=== PATIENT | female | born 1960 | race Caucasian/White ===

== ENCOUNTER 2018-06-04 09:34 | Day surgery (SDC) | payer BC ==
--- NOTE | 2018-05-31 18:33 | HP ---
AMENDED REPORT NOW INCLUDES COSIGNER DESIGNATION - ESIGNED BEFORE ADJUSTMENT PREOPERATIVE HISTORY AND PHYSICAL: DATE OF SURGERY/ADMISSION: 06/04/18 DATE OF OFFICE VISIT/ENCOUNTER: 05/29/18 ATTENDING SURGEON: Rosario Barry MD * (DICTATED BY SARA FRANCISCO) PROCEDURE: Right thumb trigger release. CHIEF COMPLAINT: Right thumb triggering. HISTORY OF PRESENT ILLNESS: This is a 57-year-old female who complains of pain and catching in her right thumb with flexion. She has had trouble for about a month. She denies any specific injury. At this point, she is trying to avoid flexing her thumb because it is very painful. She denies any associated numbness or tingling. She has a history of a left thumb trigger release and has done well with that. She is not interested in a cortisone injection for her right thumb; she would like to proceed directly to surgical intervention. PAST MEDICAL HISTORY: 1. Asthma. 2. GERD. PAST SURGICAL HISTORY: 1. Ganglion cyst excision, right wrist. 2. Bilateral shoulder decompressions. 3. Thyroidectomy. 4. Left trigger thumb release. 5. Elbow tendon release on the right. 6. Appendectomy. 7. Bilateral cataract surgery. 8. D and C x2. 9. Removal of a vocal cord polyp. CURRENT MEDICATIONS: 1. Calcium 500 plus D daily. 2. Motrin 200 mg daily. 3. Multivitamin 1 daily. 4. Protonix 40 mg b.i.d. 5. QVAR 40 mcg/ACT 2 puffs twice a day. 6. Synthroid 88 mcg daily. 7. Vitamin C 500 mg daily. 8. Xopenex 1.25 mg/ 3 mL for nebulizer p.r.n. 9. Zyrtec Allergy 10 mg daily. ALLERGIES: 1. DTAP, reaction unknown. 2. MORPHINE causes nausea. 3. PNEUMOVAX causes nausea. 4. SULFA ANTIBIOTICS and ZOFRAN cause hives. FAMILY MEDICAL HISTORY: Cancer, diabetes, heart disease. 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 She is a former smoker, she quit at age 19. She denies recreational drug use. She drinks alcohol on rare occasion. REVIEW OF SYSTEMS: Negative for general, cephalic, cardiovascular, respiratory , GI, , other musculoskeletal, skin, neurologic and endocrine systems. Negative for history of MRSA, hepatitis C, HIV. PHYSICAL EXAMINATION GENERAL: Well-developed, well-nourished 57-year-old female, in no acute distress. VITAL SIGNS: Height 5 feet 3 inches, weight 153 pounds. Pulse rate 72, blood pressure 118/74. HEENT: Normocephalic, atraumatic. Pupils are equal, round, and reactive to light and accommodation. Extraocular movements are intact. Throat is clear. NECK: Supple. No palpable lymph nodes. PULMONARY: Lungs are clear to auscultation bilaterally. No wheezes, rales, or rhonchi. CARDIOVASCULAR: Regular rate and rhythm. S1, S2. No murmurs, rubs, or gallops. No edema. ABDOMEN: Positive bowel sounds. Soft, nontender. NEUROLOGICAL: Alert and oriented x3. Cranial nerves II through XII are intact. Sensation is intact to light touch. MUSCULOSKELETAL: On exam of her right hand and her thumb in particular, she has marked tenderness at the A1 toshia and significant difficulty with IP flexion of the thumb. She also cannot hyperextend her thumb. Skin is intact. Neurovascular function is intact. IMPRESSION: Right trigger thumb. PLAN: The patient is scheduled to undergo a right thumb trigger release with Dr. Barry on 06/04/18. She will return to the office 10 days postop for followup and suture removal. A prescription for Ultracet was e-scribed to the patient's pharmacy for postoperative pain management. SARA FRANCISCO [id number]/[facility] #: [id number] LYLA
[~2018-06-04 09:34] MED LIST: Buffered Lidocaine 0.9% SYRIN* 5 ML/SYR SYRINGE INTRADERM ONE; Famotidine IV* 10 MG/ML 2 ML (20 mg) IV ONE
[2018-06-04] MEDS ORDERED: Famotidine IV* 10 MG/ML 2 ML (20 mg) ONE (10:26)
[2018-06-04] MEDS ORDERED: Midazolam* 1 MG/ML 5 ML VIAL (5 MG) ONE (11:02)
[2018-06-04] MEDS ORDERED: fentaNYL* 50 MCG/ML 2 ML VIAL (100 MCG VIAL) ONE (11:02)
[2018-06-04] MEDS ORDERED: Acetaminophen TAB* 325 MG PO PRN (11:35)
[2018-06-04] MEDS ORDERED: DiMENhydriNATE IV* 50 MG/ML VIAL IV PUSH PRN (11:35)
[2018-06-04] MEDS ORDERED: Lidocaine 1% INJ* 10 MG/ML 30 ML SDV ONE (11:38)
[2018-06-04] MEDS ORDERED: Ketorolac INJ* 30 MG/ML 1 ML VIAL ONE (11:40)
[2018-06-04] MEDS ORDERED: Lidocaine 2% PF * 5 ML VIAL ONE (11:40)
[2018-06-04] MEDS ORDERED: Propofol* 10 MG/ML 20 ML BTL IV PUSH ONE (11:40)
[2018-06-04 12:26] VITALS: BP 126/69
--- NOTE | 2018-06-04 21:33 | OP ---
DATE OF OPERATION: 06/04/18 [facility] DATE OF : 58 SURGEON: Rosario Barry MD ELECTRICAL UNIT REBUILDER: SARA Atkins ANESTHESIA: Local MAC. PRE-OP DIAGNOSIS: Right trigger thumb. POST-OP DIAGNOSIS: Right trigger thumb. OPERATIVE PROCEDURE: Right trigger thumb release. ESTIMATED BLOOD LOSS: Zero. TOURNIQUET TIME: About 10 minutes. INDICATIONS FOR PROCEDURE: Stacy is a 57-year-old woman who has triggering and locking of her right thumb. She presents for right trigger thumb release. DESCRIPTION OF PROCEDURE: The patient was brought to the operating room, was given a sedation anesthetic and a local infiltration of 10 cc of 1% plain lidocaine at the MP flexion crease of her right thumb. The skin of her right hand and forearm was prepped and draped in the usual sterile fashion. The hand and forearm were exsanguinated and the tourniquet elevated to 250 mmHg. A transverse incision was made over the A1 toshia of the right thumb and then we dissected bluntly through the subcutaneous tissue down to the A1 toshia. The digital neurovascular bundles were retracted by the salesperson surgical appliances, Patsy Mcpherson. The A1 toshia was incised longitudinally, completely releasing the flexor tendon which was in good condition. There was no tenosynovitis. The wound was irrigated and skin edges reapproximated with 4-0 nylon suture. The wound was dressed with Xeroform, 4 x 4, Webril, and an Octaviano wrap. The patient tolerated the procedure well and was brought to the recovery room in good condition. [id number]/[facility] #: [id number] MTDD
== END 2018-06-04 12:40 | disposition home or self-care (01) ==
LOC: OREAST 09:34
PROVIDERS: ATTEND Orthopaedic Surgery
DX: M65.311 Trigger thumb, right thumb (principal); J45.909 Unspecified asthma, uncomplicated; K21.9 Gastro-esophageal reflux disease without esophagitis; Z87.891 Personal history of nicotine dependence; E03.9 Hypothyroidism, unspecified; F41.9 Anxiety disorder, unspecified
CPT/HCPCS: J1885; J2250; J2704; J3010

== ENCOUNTER 2018-07-18 07:52 | Emergency (ER) | payer BC ==
--- OUTSIDE RECORDS SUMMARY | 2018-07-18 07:56 | XMS REPORT | Continuity of Care Document ---
:1960 Author Organization [facility] Office Address [address] [place] [address] Phone Care Team Providers Name Role Phone Shadi Hernandez MD Unavailable Dr. Shadi Gomez MD Unavailable Unavailable Unavailable Problems ALLERGIC RHINITIS (J30.9) (477.9) MD Shadi Gomez Dr. DYSPNEA (R06.00) (786.09) ROSA Pickens GERD (GASTROESOPHAGEAL REFLUX DISEASE) (K21.9) (530.81) MD Shadi Gomez Dr. HYPERLIPIDEMIA (E78.5) (272.4) MD Shadi Gomez Dr. HYPOTHYROID (E03.9) (244.9) MD Shadi Gomez Dr. MILD PERSISTENT ASTHMA (J45.30) (493.90) ROSA Pickens Allergies and Adverse Reactions Morphine Derivatives (Allergy) Sulfa Drugs (Allergy) Vaccines - Albumin (Allergy) Comments: Pneumonia vaccine cellulitis Vaccines - Albumin (Allergy) Comments: Tdap cellulitis Zofran *ANTIEMETICS* (Allergy) Medications Calcium-Vitamin D 500 MG Oral Capsule; (500 MG) DUONEB, 0.5-2.5 (3)MG/3ML Comments: Medication taken (Inhalation Solution); 1 four as needed. times daily, as needed (0.5-2.5 (3) MG/3ML) EpiPen 2-Elmer 0.3 MG/0.3ML Injection Solution Auto-injector; 1 Soln Auto-inj as needed for 30 days Ordered: 03-Jul-2018 Start: 03-Jul-2018 Quantity: [address] Comments: Medication taken as needed. Refills: 1 Multi Vitamin Daily Oral Tablet; 1 daily PROTONIX, 40MG (Oral Packet); 1 two times daily (40 MG) Qvar 40 MCG/ACT Inhalation Aerosol Solution; 2 (two) Puff(s) two times daily for 30 days Ordered: 03-Jul-2018 Start: 03-Jul-2018 Quantity: [address] Comments: Patient has a coupon Refills: 5 SYNTHROID, 88MCG (Oral Tablet); 1 daily (88 MCG) Xopenex HFA 45 MCG/ACT Inhalation Aerosol; 1-2 Aerosol every four hours, as needed for 30 days Ordered: 03-Jul-2018 Start: 03-Jul-2018 Quantity: [address] Comments: Medication taken as needed. patient has coupon Refills: 3 XOPENEX, 1.25MG/3ML (Inhalation Nebulization Solution); 1 three times daily (1.25 MG/3ML) ZYRTEC ALLERGY, 10MG (Oral Capsule); 1 daily (10 MG) ALPRAZOLAM, 0.25MG (Oral Tablet); Status: Inactive 1 three times daily, as needed Comments: Medication taken as needed. (0.25 MG) AMBIEN, 10MG (Oral Tablet); 1 Status: Inactive daily (10 MG) SYNTHROID, 112MCG (Oral Tablet); Status: Inactive 1 daily (112 MCG) ZOCOR, 20MG (Oral Tablet); 1 Status: Inactive daily (20 MG) ZOLOFT, 100MG (Oral Tablet); 1 Status: Inactive daily (100 MG) Procedures RESPIRATORY FLOW VOLUME LOOP MD Shadi Gomez Dr. Status: Completed May-2017 (21675) REST OXIMETRY (21468) Fadumo Narayanan Status: Completed 05-Jun-2017 PRE AND POST (69110) MD Shadi Gomez Dr. Status: Completed 24-Apr-2016 RESPIRATORY FLOW VOLUME LOOP MD Shadi Gomez Dr. Status: Completed Apr-2016 (39624) REST OXIMETRY (73206) MD Shadi Gomez Dr. Status: Completed 2015 RESPIRATORY FLOW VOLUME LOOP MD Shadi Gomez Dr. Status: Completed Apr-2015 (57305) PRE AND POST W/ RT (15583) MD Shadi Gomez Dr. Status: Completed Apr-2015 RESPIRATORY FLOW VOLUME LOOP MD Shadi Gomez Dr. Status: Completed Nov-2014 (15954) PRE AND POST (25567) MD Shadi Gomez Dr. Status: Completed 02-Dec-2014 ABNORMAL UTERINE BLEEDING MD Shadi Gomez Dr. Status: Completed Comments: ablation, then DNC APPENDECTOMY MD Shadi Gomez Dr. Status: Completed Comments: AGE 15 Cataract Extraction-Left MD Shadi Gomez Dr. Status: Completed 2014 CATARACT, RIGHT MD Shadi Gomez Dr. Status: Completed 1994 Chest X-ray MD Shadi Gomez Dr. Status: Completed 02-Dec-2014 Comments: No evidence of acute pulmonary disease D & C MD Shadi Gomez Dr. Status: Completed 11-Sep-2015 Flu Vaccine MD Shadi Gomez Dr. Status: Completed 08-Aug-2016 Ganglion cyst MD Shadi Gomez Dr. Status: Completed H/O THYROIDECTOMY MD Shadi Gomez Dr. Status: Completed 1994 ORTHOPEDIC AFTERCARE MD Shadi Gomez Dr. Status: Completed Comments: Trigger finger left thumb, tendon release right elbow, decompression bilateral shoulders. PFT MD Shadi Gomez Dr. Status: Completed 02-Dec-2014 Comments: FEV1 2.36 (94), ratio 79, stable PFT MD Shadi Gomez Dr. Status: Completed 05-Jun-2017 Comments: No Obstruction. FEV1 1.25 (88), ratio 80 POLYP OF VOCAL CORD MD Shdai Gomez Dr. Status: Completed 1990 Comments: REMOVED NON CANCEROUS Procedure: PRE AND POST (39640)Result: Date: 05-Jun-2017 10:02 Hemoptysis: No Status: Completed 05-Jun-2017 9:[address] Procedure: ACT: ASSESSMENT OF DISEASE: ASTHMA Date: 26-Apr-2015 14:23 SYMPTOMS EVALUATE (1005F)Result: Status: Completed 26-Apr-2015 14:24 [Questions] In the past 4 weeks, how much of the MD Shadi Gomez Dr. time did your asthma keep you from getting as much done at work, school, or home?: 5; During the past 4 weeks, how often have you had shortness of breath?: 4; During the past 4 weeks, how often did your asthma symptoms (wheezing, coughing, shortness of breath, chest tightness, or pain) wake you up at night or earlier than usual in the morning?: 5; During the past 4 weeks, how often have you used your rescue inhaler or nebulizer medication (such as albuterol)?: 5; How would you rate your asthma control during the past 4 weeks?: 5 [Total ACT Score] Score: 24 Procedure: CHEST X-RAY, PA AND LATERAL Status: Completed 02-Dec-2014 9:43 ([id number])Result: MD Shadi Gomez Dr. Are you or could you become ?: No; When was you last CXR/CT?: 2014; Law Writer: MERVIN Stotu Immunizations Influenza (3 years and up) On: 07-Sep-2015 Family History Brother 1 Status: Active Comments: heart disease, angina d/t CO age 60 Brother 1 Status: Active Comments: . Lung Cancer. COPD. age 70 Brother 2 Status: Active Comments: Lung Cancer. COPD. Father Status: Active Comments: . COPD. age 70 Mother Status: Active Comments: heart disease, diabetes Mother Status: Active Comments: . Heart disease. Diabetes mellitus, Type II. age 70 Sister 1 Status: Active Comments: COPD. Social History Alcohol use: Occasional alcohol use. Current work status: Full-time. Marital status: . 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 Comments: 6 Tobacco use: Former smoker. Comments: started age 15 quit age 18 Former smoker Female Plan of Treatment EXHALED GAS NITRIC OXIDE MEASUREMENT (MOLES/VOLUME) (96101) Start: 2018 Intent PRE AND POST (99657) Start: 31-May-2018 Intent RESPIRATORY FLOW VOLUME LOOP (60093) Start: 31-May-2018 Intent REST OXIMETRY (43580) Start: 31-May-2018 Intent Medical; PRE AND POST RT - FENO Start: 17-Jun-2019 15:30 Appointment Request [facility] Resp Therapy [facility], RT Medical; FOLLOW UP 30 - 1YR FU ,PPRT,FENO Start: 17-Jun-2019 15:45 Appointment Request [facility] Stephanie Toro IMMUNOGLOBULIN E (IgE) ([id number]) Start: 02-Dec-2014 11:01 Request MILD PERSISTENT ASTHMA : Asthma patient education Indication: MILD PERSISTENT ASTHMA ALLERGIC RHINITIS : Avoid triggers Indication: ALLERGIC RHINITIS MILD PERSISTENT ASTHMA : Asthma FU yearly Indication: MILD PERSISTENT ASTHMA ALLERGIC RHINITIS : Avoid triggers Indication: ALLERGIC RHINITIS MILD PERSISTENT ASTHMA : Asthma patient education Indication: MILD PERSISTENT ASTHMA Results No Result Information Available Vital Signs 03-Jul-2018 15:52 Temperature 97.8 f Comments: Method: Tympanic Pulse 70 /min Comments: Pattern: Regular Respiration Rate 14 /min Comments: Pattern: Unlabored O2 SAT 97 % Comments: Room air BP Systolic 108 mm[Hg] Comments: Patient Position: Sitting; Cuff Location: Left Arm; Cuff Size: Standard BP Diastolic 70 mm[Hg] Comments: Patient Position: Sitting; Cuff Location: Left Arm; Cuff Size: Standard Weight 151 lb Height 63 in BMI 26.75 kg/m2 BSA 1.72 m2 05-Jun-2017 9:39 Temperature 98.1 f Comments: Method: Oral Pulse 67 /min Comments: Pattern: Regular Respiration Rate 12 /min Comments: Pattern: Unlabored O2 SAT 98 % Comments: Room air BP Systolic 120 mm[Hg] Comments: Patient Position: Sitting; Cuff Location: Left Arm; Cuff Size: Standard BP Diastolic 80 mm[Hg] Comments: Patient Position: Sitting; Cuff Location: Left Arm; Cuff Size: Standard Weight 151 lb Height 63 in BMI 26.75 kg/m2 BSA 1.72 m2 24-Apr-2016 9:10 Temperature 97.9 f Comments: Method: Tympanic Pulse 68 /min Comments: Pattern: Regular Respiration Rate 14 /min Comments: Pattern: Unlabored O2 SAT 97 % Comments: Room air BP Systolic 118 mm[Hg] Comments: Patient Position: Sitting; Cuff Location: Left Arm; Cuff Size: Large BP Diastolic 70 mm[Hg] Comments: Patient Position: Sitting; Cuff Location: Left Arm; Cuff Size: Large Weight 153 lb Height 63 in BMI 27.1 kg/m2 BSA 1.73 m2 26-Apr-2015 14:18 Temperature 97 f Comments: Method: Tympanic Pulse 76 /min Comments: Pattern: Regular Respiration Rate 16 /min Comments: Pattern: Unlabored O2 SAT 98 % Comments: Room air BP Systolic 110 mm[Hg] Comments: Patient Position: Sitting; Cuff Location: Left Arm; Cuff Size: Large BP Diastolic 72 mm[Hg] Comments: Patient Position: Sitting; Cuff Location: Left Arm; Cuff Size: Large Weight 148 lb Height 63 in BMI 26.22 kg/m2 BSA 1.7 m2 02-Dec-2014 10:04 Temperature 97.6 f Comments: Method: Tympanic Pulse 66 /min Comments: Pattern: Regular Respiration Rate 16 /min Comments: Pattern: Unlabored O2 SAT 98 % Comments: Room air BP Systolic 110 mm[Hg] Comments: Patient Position: Sitting; Cuff Location: Left Arm; Cuff Size: Standard BP Diastolic 70 mm[Hg] Comments: Patient Position: Sitting; Cuff Location: Left Arm; Cuff Size: Standard Weight 153 lb Height 63 in BMI 27.1 kg/m2 BSA 1.73 m2 Advance Directives HIPAA - Effective on 06/05/2017. Expiration date unspecified. Effective: Scanned Document is available upon request. Encounters Office Visit 03-Jul-2018 15:52 To 03-Jul-2018 16:08 Encounter Reason: ASTHMA, FOLLOW UP - The patient's long-term asthma pattern may be classified as mild persistent. The last clinic visit was 12 month(s) ago. No changes in management were made at the last visit. The [facility] ent's asthma causes daytime symptoms 1 to 2 times per month. The patient's asthma never disturbs sleep. Symptoms do not include wheezing, chest tightness, shortness of breath, non-productive cough or ch est pain. The patient describes this as mild and unchanged. Symptoms are exacerbated by cold temperature, while symptoms are not exacerbated by activity. Symptoms are relieved by inhaler use, rest and o ral steroids. Associated symptoms include allergy symptoms, while associated symptoms do not include fever, chills or upper respiratory infection symptoms. Current treatment includes inhaled albuterol, inhaled short-acting beta-2 agonists and inhaled corticosteroids (Qvar). Bronchodilator use is becoming less frequent. By report there is good compliance with treatment, good tolerance of treatment and good symptom control. Pertinent medical history includes hospitalization for asthma, allergic rhinitis and gastroesophageal reflux, while pertinent medical history does not include intubation. The mikayla nt has been exposed to animal dander, while the patient has not been exposed to wood burning stove or tobacco smoke. The patient is currently able to do activities of daily living without limitations, a ble to work with limitations and able to do housework without limitations. Encounter Diagnosis: MILD PERSISTENT ASTHMA, ALLERGIC RHINITIS Historical Summary 11-Jun-2018 9:28 To 11-Jun-2018 9:31 [facility] Office Office Visit 05-Jun-2017 9:17 To 05-Jun-2017 10:03 Encounter Reason: ASTHMA, FOLLOW UP - The patient's long-term asthma pattern may be classified as mild persistent. The last clinic visit was 12 month(s) ago. No changes in management were made at the last visit. The [facility] ent's asthma causes daytime symptoms 1 to 2 times per month. The patient's asthma never disturbs sleep. Symptoms do not include wheezing, chest tightness, shortness of breath, non-productive cough or ch est pain. The patient describes this as mild and unchanged. Symptoms are exacerbated by cold temperature, while symptoms are not exacerbated by activity. Symptoms are relieved by inhaler use, rest and o ral steroids. Associated symptoms include allergy symptoms, while associated symptoms do not include fever, chills or upper respiratory infection symptoms. Current treatment includes inhaled albuterol, inhaled short-acting beta-2 agonists and inhaled corticosteroids (Qvar). Bronchodilator use is becoming less frequent. By report there is good compliance with treatment, good tolerance of treatment and good symptom control. Pertinent medical history includes hospitalization for asthma, allergic rhinitis and gastroesophageal reflux, while pertinent medical history does not include intubation. The mikayla nt has been exposed to animal dander, while the patient has not been exposed to wood burning stove or tobacco smoke. The patient is currently able to do activities of daily living without limitations, a ble to work with limitations and able to do housework without limitations. Encounter Diagnosis: ASTHMA, ALLERGIC RHINITIS Office Visit 24-Apr-2016 9:01 To 24-Apr-2016 9:42 Encounter Reason: ASTHMA, FOLLOW UP - The patient's long-term asthma pattern may be classified as mild persistent. The last clinic visit was 12 month(s) ago. No changes in management were made at the last visit. The [facility] ent's asthma causes daytime symptoms 1 to 2 times per month. The patient's asthma never disturbs sleep. Symptoms do not include wheezing, chest tightness, shortness of breath, non-productive cough or ch est pain. The patient describes this as unchanged. Symptoms are exacerbated by cold temperature, while symptoms are not exacerbated by activity. Symptoms are relieved by inhaler use, rest and oral stero ids. Associated symptoms include upper respiratory infection symptoms, while associated symptoms do not include fever, chills or allergy symptoms. Current treatment includes inhaled albuterol and inhale d short-acting beta-2 agonists. Bronchodilator use is becoming less frequent. By report there is good compliance with treatment, good tolerance of treatment and good symptom control. Pertinent medical h istory includes allergic rhinitis and gastroesophageal reflux, while pertinent medical history does not include hospitalization for asthma. The patient has been exposed to animal dander, while the patie nt has not been exposed to wood burning stove or tobacco smoke. The patient is currently able to do activities of daily living without limitations, able to work with limitations and able to do housework without limitations. Encounter Diagnosis: ASTHMA, ALLERGIC RHINITIS Office Visit 26-Apr-2015 14:17 To 26-Apr-2015 15:58 Encounter Reason: ASTHMA, FOLLOW UP - The patient's long-term asthma pattern may be classified as mild persistent. The last clinic visit was 60 month(s) ago (2009). No changes in management were made at the last visit. [facility] Office he patient's asthma causes daytime symptoms 1 to 2 times per month. The patient 's asthma never disturbs sleep. Symptoms include wheezing, chest tightness, shortness of breath, non-productive cough and c hest pain. The patient describes the difficulty breathing as difficulty exhaling, chest tightness and dyspnea on exertion. Onset of symptoms was sudden 2 month(s) ago (was seen in ER with CP and was jolene ated with steroids. Reports a negative cardiac work up and a normal CXR). There is no known event that preceded symptom onset. The symptoms occur intermittently. The patient describes this as improving (has had 2 rounds of prednsione and a round on antibiotics). Symptoms are exacerbated by cold temperature, while symptoms are not exacerbated by activity. Symptoms are relieved by inhaler use, rest and oral steroids. Associated symptoms include upper respiratory infection symptoms , while associated symptoms do not include fever, chills or allergy symptoms. Current treatment includes inhaled albuterol and inhaled short-acting beta-2 agonists. Bronchodilator use is becoming less frequent. By report there is good compliance with treatment, good tolerance of treatment and fair symptom control. Note for "Follow-up for asthma": April 26, 2015Pt states that she is feeling well. She has no concerns today. The last time she needed oral steroids was in January for an episode of bronchitis. She has been using the QVAR daily. She states that her symptoms vary. Within the past month she has only used her Xopenex once. She states that most of her breathing issues are associated with an common cold. She states that her URI's quickly turn into bronchitis or pneumonia. She denies any SOB with activities of daily living, nocturnal awakenings, wheezing or cough. Her ACT score was 24. Encounter Diagnosis: ASTHMA Office Visit 02-Dec-2014 9:41 To 02-Dec-2014 11:12 Encounter Reason: ASTHMA, FOLLOW UP - The patient's long-term asthma pattern may be classified as mild persistent. No changes in management were made at the last visit.The last clinic visit was 60 month(s) ago (2009). [facility] She was seen in ER with CP and was treated with steroids. Reports a negative cardiac work up and a normal CXR. Onset of symptoms was sudden 2 month(s) ago. Symptoms included wheezing, chest tightness, shortness of breath, non-productive cough and chest pain. The patient describes the difficulty breathing as difficulty exhaling, chest tightness and dyspnea on exertion. The patient's asthma causes day time symptoms 1 to 2 times per month. The patient's asthma never disturbs sleep. There is no known event that preceded symptom onset. The symptoms occur intermittently. The patient describes this as imp roving (has had 2 rounds of prednsione and a round on antibiotics). Symptoms are exacerbated by cold temperature, while symptoms are not exacerbated by activity. Symptoms are relieved by inhaler use, re st and oral steroids. Associated symptoms include upper respiratory infection symptoms, while associated symptoms do not include fever, chills or allergy symptoms. Current treatment includes inhaled alb uterol and inhaled short-acting beta-2 agonists. Bronchodilator use is becoming less frequent. By report there is good compliance with treatment, good tolerance of treatment and fair symptom control. Encounter Diagnosis: ASTHMA, ALLERGIC RHINITIS Historical Summary 01-Dec-2014 15:56 To 24-Feb-2015 16:08 [facility] Office [employer] [address] Group Number: [id number] tel: CURRENT OPEN 3 TI[employer] Group Number: [id number] [id number] tel:
--- OUTSIDE RECORDS SUMMARY | 2018-07-18 07:56 | XMS REPORT ---
:1960 External Reference #:[id number] Author Organization [employer] Address [address] [place] [address] [place] [address] Phone [phone] Care Team Providers Name Role Phone Shadi Hernandez MD Primary Care Physician Unavailable Payers Type Date Identification Numbers Payment Provider Subscriber Commercial Effective: Policy Number: BS Facets Stacy Bello 2011 [id number] PayID: [id number] [address] [address] [place] [address] Problems Date Description Provider Status Onset: 01/07/2016 Wrist joint pain Jericho Solis MD Active Onset: 08/13/2017 Sprain of shoulder and upper arm Amy Lopez M.D. Active Onset: 08/13/2017 Injury of shoulder region Amy Lopez M.D. Active Onset: 08/13/2017 Calcific tendinitis of shoulder Amy Lopez M.D. 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 No Do you have problems with snoring? Yes Do you have problems with day time fatigue? NO Allergies, Adverse Reactions, Alerts Date Description Reaction Status Severity Comments 12/15/2014 Sulfa Antibiotics active 12/15/2014 Morphine active 12/15/2014 Zofran active 12/15/2014 Pneumovax active 02/01/2017 D-Tap Cellulitis active Moderate Medications Medication Date Status Form Strength Qnty SIG Indications Ordering Provider Protonix 00/ Active Tablets DR 40mg 1 by mouth Unknown 0000 twice every day Zyrtec / Active Tablets 10mg 1 by mouth Unknown Allergy 0000 every day Vitamin C / Active Capsules 500mg 1 by mouth Unknown 0000 every day Calcium 500 / Active Tablets 500-125mg- One tab by Unknown + D 0000 Unit mouth daily Multi For / Active Tablets 1 by mouth Unknown Her 0000 every day Motrin Ib / Active Tablets 200mg as needed Unknown 0000 Synthroid / Active Tablets 88mcg 1 by mouth Unknown 0000 every day Xopenex / Active Nebulizer 1.25mg/3ML instill 3ml Unknown 0000 to nebulizer every 8 hours as needed Qvar / Active Aerosol 40mcg/Act 2 puff Unknown 0000 twice a day Epipen 2-Elmer / Active Solution 0.3mg/0.3M use as Unknown 0000 Auto-Inject L directed, as needed Tylenol 8 / Active Unknown Hour 0000 Tramadol 05/29/ Hx Tablets 37.5-325mg 15tabs 1 tab by Rosario Farrell 2017 - mouth every Barry, e/Acetaminop 06/18/ 4-6 hours M.D. hen 2018 as needed pain Naproxen 08/13/ Hx Tablets 500mg 30tabs 1 tablet M75.31 Amy 2016 - with food John, 12/11/ by mouth M.D. 2017 twice a day Naproxen 10/03/ Hx Tablets 500mg 90tabs 1 po bid M75.42 Lowell Tariq 2015 - prn pain Chrissy, 08/13/ (pt has not MD 2017 been taking) Carolina 01/05/ Hx Tablets 5-325mg 30tabs 1-2 tab by Rome 2014 - mouth every Young, 04/11/ bid as M.D. 2015 needed pain Valium 12/22/ Hx Tablets 5mg 3tabs 1 by mouth Shadi 2014 - 2 hours Lawrence, 11/08/ prior to M.D. 2017 mri may take one more every 1 hour as needed anxiety Synthroid / Hx Tablets 100mcg 1 by mouth Unknown 0000 - every day 2016 Xopenex HFA / Hx Aerosol 45mcg/Act 2 puffs Unknown 0000 - four times 01/30/ a day as 2017 needed Aspirin Ec / Hx Tablets DR 81mg 1 by mouth Unknown 0000 - every day 2017 Medications Administered in Office Medication Date Status Form Strength Qnty SIG Indications Ordering Provider Depomedrol Administered Injection Juan 40MG 018 GRADY Byrne Depomedrol Administered Injection Rome 80MG 015 Vishal Granda Vital Signs Date Vital Result Comment 06/27/2018 Height 63 inches 5'3" Weight 150.00 lb Heart Rate 72 /min BP Systolic Sitting 134 mmHg BP Diastolic Sitting 76 mmHg Respiratory Rate 16 /min Pain Level 0 BMI (Body Mass Index) 26.6 kg/m2 06/19/2018 Height 64 inches 5'4" Weight 150.00 lb Heart Rate 68 /min BP Systolic 120 mmHg BP Diastolic 72 mmHg Respiratory Rate 12 /min Pain Level 0 BMI (Body Mass Index) 25.7 kg/m2 06/06/2018 Height 64 inches 5'4" Weight 150.00 lb Heart Rate 64 /min Respiratory Rate 20 /min Body Temperature 98.2 F Pain Level 5 BMI (Body Mass Index) 25.7 kg/m2 05/29/2018 Height 63 inches 5'3" Weight 153.25 lb Heart Rate 72 /min BP Systolic 118 mmHg BP Diastolic 74 mmHg Respiratory Rate 12 /min Pain Level 4 BMI (Body Mass Index) 27.1 kg/m2 12/12/2017 Height 64 inches 5'4" Weight 150.00 lb Heart Rate 76 /min BP Systolic Sitting 122 mmHg BP Diastolic Sitting 68 mmHg Respiratory Rate 16 /min Pain Level 0 uses inserts and ice BMI (Body Mass Index) 25.7 kg/m2 08/27/2017 Height 64 inches 5'4" Weight 150.00 lb Heart Rate 80 /min BP Systolic 108 mmHg BP Diastolic 64 mmHg BMI (Body Mass Index) 25.7 kg/m2 08/13/2017 Height 63 inches 5'3" Weight 150.00 lb Heart Rate 61 /min BP Systolic 105 mmHg BP Diastolic 74 mmHg Body Temperature 97.2 F BMI (Body Mass Index) 26.6 kg/m2 02/22/2017 Height 63 inches 5'3" Weight 151.00 lb Heart Rate 80 /min BP Systolic 120 mmHg BP Diastolic 80 mmHg Respiratory Rate 16 /min Pain Level 2 BMI (Body Mass Index) 26.7 kg/m2 02/01/2017 Height 63 inches 5'3" Weight 152.00 lb with shoes Heart Rate 76 /min BP Systolic 122 mmHg Rue reg cuff BP Diastolic 72 mmHg Rue reg cuff BP Systolic Sitting 120 mmHg Lue reg cuff BP Diastolic Sitting 76 mmHg Lue reg cuff BP Systolic Standing 126 mmHg Lue reg cuff BP Diastolic Standing 82 mmHg Lue reg cuff Respiratory Rate 15 /min BMI (Body Mass Index) 26.9 kg/m2 11/14/2016 Height 63 inches 5'3" Weight 151.00 lb Heart Rate 81 /min BP Systolic 121 mmHg BP Diastolic 81 mmHg Respiratory Rate 14 /min BMI (Body Mass Index) 26.7 kg/m2 10/03/2016 Height 62 inches 5'2" Weight 145.00 lb Respiratory Rate 18 /min Pain Level 7 BMI (Body Mass Index) 26.5 kg/m2 04/12/2016 Height 63 inches 5'3" Weight 145.00 lb Pain Level 2 BMI (Body Mass Index) 25.7 kg/m2 03/02/2016 Height 63 inches 5'3" Weight 145.00 lb Body Temperature 96.1 F Pain Level 3 BMI (Body Mass Index) 25.7 kg/m2 02/10/2016 Height 63 inches 5'3" Weight 145.00 lb BMI (Body Mass Index) 25.7 kg/m2 01/26/2016 Height 63 inches 5'3" Weight 145.00 lb Heart Rate 75 /min BP Systolic 113 mmHg BP Diastolic 73 mmHg BMI (Body Mass Index) 25.7 kg/m2 01/07/2016 Height 63 inches 5'3" Weight 147.00 lb Heart Rate 68 /min BP Systolic 122 mmHg BP Diastolic 82 mmHg BMI (Body Mass Index) 26.0 kg/m2 01/05/2016 Height 63 inches 5'3" Weight 148.00 lb Heart Rate 60 /min BP Systolic Sitting 118 mmHg BP Diastolic Sitting 66 mmHg Respiratory Rate 16 /min Pain Level 5 BMI (Body Mass Index) 26.2 kg/m2 07/07/2015 Height 63 inches 5'3" Weight 150.00 lb Pain Level 3 BMI (Body Mass Index) 26.6 kg/m2 06/11/2015 Height 63 inches 5'3" Weight 150.00 lb Heart Rate 69 /min BP Systolic Sitting 118 mmHg BP Diastolic Sitting 87 mmHg Pain Level 6 BMI (Body Mass Index) 26.6 kg/m2 01/14/2015 Height 63 inches 5'3" Weight 150.00 lb Body Temperature 97.6 F Pain Level 6 BMI (Body Mass Index) 26.6 kg/m2 01/05/2015 Height 63 inches 5'3" Weight 150.00 lb Pain Level 8 BMI (Body Mass Index) 26.6 kg/m2 12/15/2014 Height 63 inches 5'3" Weight 150.00 lb Heart Rate 72 /min BP Systolic 112 mmHg BP Diastolic 84 mmHg Pain Level 8 BMI (Body Mass Index) 26.6 kg/m2 Results Test Date Test Result H/L Range Note Laboratory test 02/22/2016 Surgical Pathology SEE RESULT BELOW 1, 2 finding 1 [id number] 2 SEE RESULT BELOW Name: STACY BELLO : [address]: Rosario Barry MD Acct: [id number] Unit: [id number] AGE: 55 Location: [facility] Re02/22/16 SEX: F Status: REG [facility] SPEC: [id number] ELZA: 02/22/16-0956 [facility] DR: Rosario Barry MD REQ: [id number] RECD: 02/22/16-1257 STATUS: SOUT _ ORDERED: LEVEL III COMMENTS: [id number] FINAL DIAGNOSIS Wrist, right, excision: -- Benign cartilage and synovial tissue fragments, compatible with ganglion cyst. PRE-OPERATIVE DIAGNOSIS Ganglion right wrist. GROSS DESCRIPTION The specimen is received in formalin labeled, Ganglion Right Wrist, and consists of a 1.4 x 1.3 x 0.4 cm aggregate of crump-white irregular rubbery soft tissue fragments admixed with scant possible bone. Entirely submitted, one cassette. Signed (signature on file) Gabby Barbour MD 1241 END OF REPORT * ML=Testing performed at Main Lab DEPARTMENT OF PATHOLOGY, [address] [place] [address] Abdulaziz Gibbs M.D. Director [facility] # [id number] Procedures Date CPT Code Description Status 06/04/2018 88866 Trigger Finger Release Incision / Tendon Sheath Completed Incision 06/04/2018 81620 Trigger Finger Release Incision / Tendon Sheath Completed Incision 02/20/2017 91330 ECHO Stress Test Incl Perf Contiuous ekg Monitoring Completed W/Phys Superv 02/01/2017 95668 EKG Tracing & Interpretation Completed 02/22/2016 61347 Excision Ganglion Wrist/ Dorsal Or Volar; Primary Completed 02/22/2016 37152 Excision Ganglion Wrist/ Dorsal Or Volar; Primary Completed 01/14/2015 22612 Inject/Drain Joint/Bursa Intermediate W/O US Completed Encounters Type Date Location Provider CPT E/M Dx Office Visit 06/06/2018 [facility], 22417 M75.31 8:30a Akshat BARRERA M25.511 Office Visit 05/29/2018 11:00a [facility] Rosario Barry, 38391 M65.311 Of Akshat Rodgers Office Visit 12/12/2017 2:30p [facility] Shadi Bravo, 82319 M72.2 Of [facility] [place] Vishal M76.821 Office Visit 08/27/2017 3:30p [facility] Amy Lopez, 40983 S46.011A C.Frieda Rodgers S46.101A M25.511 M75.31 Office Visit 08/13/2017 10:30a [facility] Amy Lopez, 57611 S46.011A C.Frieda Rodgers S46.101A M25.511 M75.31 Office Visit 02/22/2017 11:00a [facility] Shadi Bravo, 89449 M72.2 Akshat Rodgers Office Visit 02/01/2017 8:20a [facility] [place] [address] R07.9 [facility] R06.02 Office Visit 11/14/2016 3:00p [facility] Lowe, 55940 M75.42 Akshat BARRERA S46.012D M75.31 Office Visit 10/03/2016 11:00a [facility], 18783 M75.42 Akshat BARRERA S46.012A Office Visit 02/10/2016 3:45p [facility] Rosario Barry 02024 M67.431 Of Akshat Rodgers Office Visit 02/04/2016 1:40p [place] [address] M25.531 [facility] [place] M67.431 Office Visit 01/26/2016 8:45a [facility] Rosario Barry 91464 M25.531 Of Akshat Rodgers M65.231 Office Visit 01/07/2016 2:20p [place] [address] M25.531 [facility] [place] Office Visit 01/05/2016 3:00p [facility] Tom Cunningham M.D. 28712 M76.51 Of C.[facility].Bruce Office Visit 07/07/2015 3:20p [facility] Shadi Bravo, 38911 S93.491D Of Akshat Rodgers Office Visit 06/11/2015 10:10a [facility] Shadi Bravo, 09539 845.09 Of Akshat Rodgers Office Visit 01/14/2015 2:45p [facility] Rome Granda M.D. 76517 719.42 Of Akshat Office Visit 12/15/2014 1:45p [facility] [place] Granda M.D. 99728 719.42 Of Akshat Plan of Care 06/27/2018 - Lowell Lowe, MDM75.31 Calcific tendinitis of right shoulderFollow up:Follow up: As needed
--- OUTSIDE RECORDS SUMMARY | 2018-07-18 07:56 | XMS REPORT ---
:1960 External Reference #:[id number] Author Organization [employer] Address [address] [place] [address] [place] [address] Phone [phone] Care Team Providers Name Role Phone Shadi Hernandez MD Primary Care Physician Unavailable Payers Type Date Identification Numbers Payment Provider Subscriber Commercial Effective: Policy Number: BS Facets Stacy Bello 2011 [id number] PayID: [id number] [address] [address] [place] [address] Problems Date Description Provider Status Onset: 01/07/2016 [...] Brother - angina started age 40, of [place] age 60 Social History Type Date Description [...] (pt has not MD 2017 been taking) [place] 01/05/ Hx Tablets 5-325mg 30tabs 1-2 tab [...] SIG Indications Ordering Provider Depomedrol Administered Injection Lowell F 40MG 018 MD Chrissy Depomedrol Administered Injection Juan 40MG 018 GRADY Byrne Depomedrol Administered Injection Rome 80MG 015 Vishal Granda Vital Signs Date Vital Result Comment 06/19/2018 Height 64 inches 5'4" Weight 150.00 [...] SEE RESULT BELOW 1, 2 finding 1 [id number] 2 SEE RESULT BELOW Name: STACY BELLO : [address]: Rosario Barry MD Acct: [id number] Unit: [id number] AGE: 55 Location: [facility] Re02/22/16 SEX: F Status: REG [facility] SPEC: [id number] ELZA: 02/22/16-[address] [facility] [address]: Rosario Barry MD REQ: [id number] RECD: 02/22/16-1257 STATUS: SOUT _ ORDERED: LEVEL III COMMENTS: [id number] FINAL DIAGNOSIS Wrist, right, excision: -- Benign [...] performed at Main Lab DEPARTMENT OF PATHOLOGY, [address] [place] [address] Abdulaziz Gibbs M.D. Director [facility] # [id number] Procedures Date CPT Code Description Status 06/06/2018 19687 Inject/Drain Joint/Bursa Major W/O US Completed 06/04/2018 72383 Trigger Finger Release Incision / Tendon Sheath Completed Incision 06/04/2018 37774 Trigger Finger Release Incision / Tendon Sheath Completed Incision 02/20/2017 99186 ECHO Stress Test Incl Perf Contiuous ekg Monitoring Completed W/Phys Superv 02/01/2017 09321 EKG Tracing & Interpretation Completed 02/22/2016 79343 Excision Ganglion Wrist/ Dorsal Or Volar; Primary Completed 02/22/2016 96766 Excision Ganglion Wrist/ Dorsal Or Volar; Primary Completed 01/14/2015 11860 Inject/Drain Joint/Bursa Intermediate W/O US Completed Encounters Type Date Location Provider CPT E/M Dx Office Visit 05/29/2018 [facility] Rosario Barry, 74726 M65.311 11:00a Of [facility]kshat Rodgers Office Visit 12/12/2017 [facility] Shadi Bravo M.D. 70677 M72.2 2:30p Of [facility] [place] M76.821 Office Visit 08/27/2017 3:30p [facility] Amy Lopez, 23814 S46.011A C.MOlga OlsonDApurva S46.101A M25.511 M75.31 Office Visit 08/13/2017 10:30a [facility] Amy Lopez, 33842 S46.011A C.MOlga OlsonDApurva S46.101A M25.511 M75.31 Office Visit 02/22/2017 11:00a [facility] Shadi Bravo, 23173 M72.2 CMilad Rodgers Office Visit 02/01/2017 8:20a [facility] [place] [address] R07.9 [facility] R06.02 Office Visit 11/14/2016 3:00p [facility] Lowe 98683 M75.42 Akshat BARRERA S46.012D M75.31 Office Visit 10/03/2016 11:00a [facility] 87562 M75.42 Akshat BARRERA S46.012A Office Visit 02/10/2016 3:45p [facility] Rosario Barry 94288 M67.431 Of Akshat Rodgers Office Visit 02/04/2016 1:40p [place] [address] M25.531 [facility] [place] M67.431 Office Visit 01/26/2016 8:45a [facility] Rosario Barry 14131 M25.531 Of Akshat Rodgers M65.231 Office Visit 01/07/2016 2:20p [place] [address] M25.531 [facility] [place] Office Visit 01/05/2016 3:00p [facility] Tom Cunningham M.D. 75479 M76.51 Of C.M.AApurva Office Visit 07/07/2015 3:20p [facility] Shadi Bravo 31491 S93.491D Of Akshat Rodgers Office Visit 06/11/2015 10:10a [facility] Shadi Bravo 18100 845.09 Of Akshat Rodgers Office Visit 01/14/2015 2:45p [facility] Rome Granda M.D. 39343 719.42 Of Akshat Office Visit 12/15/2014 1:45p [facility] [place] Granda M.D. 01862 719.42 Of Akshat Plan of Care Future Appointment(s):06/27/2018 3:00 pm - Lowell Lowe MD at [facility].06/19/2018 - Rosario Barry M.D.M65.311 Trigger thumb, right thumbFollow up:Follow up: As needed
[2018-07-18 08:01] VITALS: BP 140/73
[2018-07-18] MEDS ORDERED: DOXYcycline CAP(*) 100 MG PO ONE (08:13)
--- NOTE | 2018-07-18 08:14 | ED ---
Bite Injury/Animal - HPI Summary HPI Summary: patient has had exposure to tick. removed two ticks earlier today , noted some area of redness around the tick on her right inner thigh. - History of Current Complaint Chief Complaint: UCGeneralIllness Stated Complaint: TICK BITES Time Seen by Provider: 07/18/18 08:08 Hx Obtained From: Patient Hx Last Menstrual Period: uteran abalsion Type of Bite: Animal - tick bite Has Animal Been Immunized?: Unknown Severity Initially: Mild Severity Currently: Mild Pain Intensity: 0 - Allergies/Home Medications Allergies/Adverse Reactions: Allergies Allergy/AdvReac Type Severity Reaction Status Date / Time morphine Allergy Severe Rash, Verified 07/18/18 07:59 vomiting ondansetron Allergy Severe IV route- Verified 07/18/18 07:59 red line up arm Sulfa (Sulfonamide Allergy Severe Rash, Verified 07/18/18 07:59 Antibiotics) nausea, vomiting dtap Allergy Swelling, Uncoded 06/04/18 10:38 CELLULITIS pneumonia vaccine Allergy cellulitis Uncoded 07/18/18 08:00 PMH/Surg Hx/FS Hx/Imm Hx Previously Healthy: Yes Endocrine/Hematology History: Reports: Hx Thyroid Disease - TOTAL THYROIDECTOMY CONTROLLED WITH MEDS Denies: Hx Diabetes Cardiovascular History: Reports: Hx Cardiomegaly - HX OF BEFORE THYROIDECTOMY IN 1994, NONE SINCE Denies: Hx Hypertension, Hx Pacemaker/ICD, Other Cardiovascular Problems/ Disorders Respiratory History: Reports: Hx Asthma - USES INHALERS Denies: Hx Chronic Obstructive Pulmonary Disease (COPD) GI History: Reports: Hx Gastroesophageal Reflux Disease - CONTROL WITH MEDS Denies: Hx Ulcer, Other GI Disorders History: Denies: Hx Renal Disease Musculoskeletal History: Reports: Hx Arthritis - FINGERS, Hx Tendonitis - RIGHT ELBOW WITH TENDON RELEASE, Other Musculoskeletal History - RIGHT THUMB TRIGGER FINGER DECOMPRESSION BILAT SHOULDERS Sensory History: Reports: Hx Cataracts - BILAT, Hx Contacts or Glasses - GLASSES Denies: Hx Hearing Aid Opthamlomology History: Reports: Hx Cataracts - BILAT, Hx Contacts or Glasses - GLASSES Neurological History: Denies: Other Neuro Impairments/Disorders Psychiatric History: Reports: Hx Anxiety Denies: Hx Panic Disorder - Cancer History Hx Chemotherapy: No Hx Radiation Therapy: No - Surgical History Surgery Procedure, Year, and Place: Thyroidectomy [address] [facility];. Appendectomy AGE 14 [facility];. right elbow release 2000[facility];. right cataract removal 1994;. Polyps removed from vocalcords [facility] ;. uterine ablation 2006;. [facility] ;. Decompression of bilat shoulders 2002& 2004;. left thumb trigger finger 2013;. left eye musclesurgery for strabismus AGE 3 [facility];. LEFT CATARACT 05/2015. LASER SURGERY RIGHT EYE, [place]. CYSCT/ BONE SPURS RIGHT WRIST DR MIRANDA 2013 Hx Anesthesia Reactions: Yes - N/V POST OP Infectious Disease History: No Infectious Disease History: Denies: Hx Clostridium Difficile, Hx Hepatitis, Hx Human Immunodeficiency Virus (HIV), Hx of Known/Suspected MRSA, Hx Shingles, Hx Tuberculosis, Hx Known/ Suspected VRE, Hx Known/Suspected VRSA, History Other Infectious Disease, Traveled Outside the [place] in Last 30 Days - Family History Family History: NON CONTRIBUTORY - Social History Alcohol Use: Rare Alcohol Amount: 2 PER YEAR Substance Use Type: Reports: None Smoking Status (MU): Former Smoker Type: Cigarettes Amount Used/How Often: 1/2 PACK A DAY Length of Time of Smoking/Using Tobacco: 3 Have You Smoked in the Last Year: No Review of Systems Constitutional: Negative Eyes: Negative ENT: Negative Cardiovascular: Negative Respiratory: Negative Gastrointestinal: Negative Genitourinary: Negative Physical Exam Triage Information Reviewed: Yes Vital Signs On Initial Exam: Initial Vitals Temp Pulse Resp BP Pulse Ox 36.9 C 73 18 140/73 99 07/18/18 07:56 07/18/18 07:56 07/18/18 07:56 07/18/18 07:56 07/18/18 07:56 Vital Signs Reviewed: Yes Appearance: Positive: Well-Appearing Skin: Positive: Warm, Dry - right inner thigh with an area of redness around the tick bite, no target lesion seen right popliteal area second tick removed without associated erythema Diagnostics - Vital Signs Vital Signs Temp Pulse Resp BP Pulse Ox 07/18/18 07:56 36.9 C 73 18 140/73 99 - Laboratory Lab Statement: Any lab studies that have been ordered have been reviewed, and results considered in the medical decision making process. Bite Injury Course/Dx - Diagnoses Provider Diagnosis: Tick bite of calf, Tick bite of thigh with local reaction Discharge - Sign-Out/Discharge Documenting (check all that apply): Patient Departure All imaging exams completed and their final reports reviewed: No Studies - Discharge Plan Condition: Good Disposition: HOME Patient Education Materials: Tick Bite (ED) Referrals: Shadi Hernandez MD [Primary Care Provider] - Additional Instructions: check lyme panel , repeat in two weeks. - Billing Disposition and Condition Condition: GOOD Disposition: Home
== END 2018-07-18 08:30 | disposition home or self-care (01) ==
LOC: UCEAST 07:52
DX: S80.861A Insect bite (nonvenomous), right lower leg, initial encounter (principal); S70.361A Insect bite (nonvenomous), right thigh, initial encounter; W57.XXXA Bitten or stung by nonvenomous insect and other nonvenomous arthropods, initial encounter; Y92.9 Unspecified place or not applicable; E07.9 Disorder of thyroid, unspecified; K21.9 Gastro-esophageal reflux disease without esophagitis; Z88.5 Allergy status to narcotic agent; Z88.2 Allergy status to sulfonamides; Z88.7 Allergy status to serum and vaccine; Z88.8 Allergy status to other drugs, medicaments and biological substances; Z87.891 Personal history of nicotine dependence
CPT/HCPCS: 86617; 99212; A9270-GY; G0463

== ENCOUNTER 2019-12-08 08:42 | Emergency (ER) | payer BC ==
--- OUTSIDE RECORDS SUMMARY | 2019-12-08 08:48 | XMS REPORT | Continuity of Care Document ---
:1960 External Reference #:[id number] Author Name Brian Mora MD Address [address] [place] [address] Care Team Providers Name Role Phone Ilsa Hay MD - Obstetrics & Care Team Information Sr. Payroll Manager Gynecology Shadi Hernandez MD - Family Medicine Care Team Information Sr. Payroll Manager [phone] FlShadi hercules MD - Pulmonary Care Team Information Sr. Payroll Manager Disease Problems Active Problems Provider Date History and physical examination, Dany Acosta MD, FACS Onset: 2013 follow-up Sprain of ankle Dany Acosta MD, FACS Onset: 11/17/2013 Hypothyroidism Dany Acosta MD, FACS Onset: 11/07/2013 Asthma without status asthmaticus Dany Acosta MD, FACS Onset: 2013 Acquired trigger finger Dany Acosta MD, FACS Onset: 11/07/2013 Sprain of shoulder and upper arm Onset: 09/29/2003 Shoulder joint pain Onset: 09/29/2003 Enthesopathy Onset: 09/29/2003 Social History Type Date Description Comments Sex Unknown Tobacco Use Start: Unknown Never Smoked Cigarettes Tobacco Use Start: Unknown End: Unknown Quit AGE 18 12 ppd Smoking Status Reviewed: 11/26/19 Quit AGE 18 1 ppd ETOH Use Rarely consumes alcohol Tobacco Use Start: Unknown End: Unknown Patient is a former smoker Allergies, Adverse Reactions, Alerts Active Allergies Reaction Severity Comments Date Sulfa Drugs Nuasea and vomiting 10/21/2013 Morphine 10/21/2013 Zofran 10/21/2013 Pneumovax 10/21/2013 Tdap 10/21/2013 Medications Active Medications SIG Qnty Indications Ordering Date Provider Xopenex as needed 144ml Unknown 0.31mg/3ML Nebulizer Protonix 1 po bid 30units Unknown 40mg Packet Multivitamins 1 by mouth every 90caps Unknown Capsules day Vitamin D 1 po qd 60caps Unknown 400Unit Capsules Vitamin C 1 by mouth every 30caps Unknown 500mg day Capsules Zyrtec Allergy 1 by mouth every 30caps Brian Mora MD 10mg day Capsules Synthroid 1 by mouth every Unknown 88mcg Tablets day Qvar Redihaler inhale two puff 21.2gm Brian Mora MD by mouth twice 40mcg/Act Aerosol per day. rinse mouth Xopenex HFA inhale two puffs 30gm Brian Mora MD 45mcg/Act by mouth every 6 Aerosol hours as needed for trouble breathing Immunizations Description No Information Available Vital Signs Date Vital Result Comment 11/26/2019 3:55pm BP Systolic Sitting Left Arm 118 mmHg BP Diastolic Sitting Left Arm 52 mmHg Heart Rate 50 /min Respiratory Rate 18 /min Height 63.5 inches 5'3.50" Weight 154.00 lb BMI (Body Mass Index) 26.8 kg/m2 BSA (Body Surface Area) 1.74 m2 [place] body weight in kilograms 53 kg O2 % BldC Oximetry 97 % Ra 10/28/2018 1:13pm BP Systolic Sitting Left Arm 114 mmHg BP Diastolic Sitting Left Arm 72 mmHg Heart Rate 87 /min Respiratory Rate 18 /min Height 63.5 inches 5'3.50" Weight 155.00 lb BMI (Body Mass Index) 27.0 kg/m2 BSA (Body Surface Area) 1.75 m2 [place] body weight in kilograms 53 kg O2 % BldC Oximetry 93 % ora Results Description No Information Available Procedures Description No Information Available Medical Devices Description No Information Available Encounters Description No Information Available Assessments Date Code Description Provider 11/26/2019 J45.40 Moderate persistent asthma, uncomplicated Brian Mora MD Plan of Treatment No Information Available Functional Status Description No Information Available Mental Status Description No Information Available Referrals Description No Information Available
[2019-12-08 09:13] VITALS: BP 130/80
[2019-12-08] MEDS ORDERED: Levalbuterol 0.63MG/3ML NEB* UNIT OF USE INH ONE (09:19)
--- NOTE | 2019-12-08 09:55 | UC ---
Respiratory Complaint HPI - HPI Summary HPI Summary: 59-year-old female comes in with chief complaint of cough chest congestion wheezing and shortness of breath. Patient has a history of asthma. Since September she's been having intermittent bronchitis and asthma exacerbations. She's been on 3 different antibiotics. She developed C. difficile. She has a colonoscopy scheduled for tomorrow. The last 3-4 days her respiratory symptoms got worse with more wheezing and chest congestion. No fevers measured. She does have some yellow sputum. She has been using her Xopenex inhaler which does help some with the symptoms. - History of Current Complaint Chief Complaint: UCGeneralIllness Stated Complaint: COUGH Time Seen by Provider: 12/08/19 09:15 Hx Last Menstrual Period: uteran abalsion Pain Intensity: 0 - Allergies/Home Medications Allergies/Adverse Reactions: Allergies Allergy/AdvReac Type Severity Reaction Status Date / Time morphine Allergy Severe Rash, Verified 12/08/19 09:03 vomiting ondansetron Allergy Severe IV route- Verified 12/08/19 09:03 red line up arm Sulfa (Sulfonamide Allergy Severe Rash, Verified 12/08/19 09:03 Antibiotics) nausea, vomiting dtap Allergy Swelling, Uncoded 12/08/19 09:03 CELLULITIS pneumonia vaccine Allergy cellulitis Uncoded 12/08/19 09:03 Home Medications: Home Medications Calcium Carbonate/Vitamin D3 [Calcium 600-Vit D3 200 Tablet] 1 tab PO BEDTIME [History Confirmed 12/08/19] Cetirizine HCl [Zyrtec] 10 mg PO QAM 11/02/12 [History Confirmed 12/08/19] Levalbuterol 0.63MG/3ML NEB* [Xopenex 0.63MG/3ML NEB*] 1 dose INH DAILY PRN [History Confirmed 12/08/19] Levothyroxine Sodium [Synthroid] 75 mcg PO QAM 11/02/12 [History Confirmed 07/18] Ascorbic Acid TAB* [Vitamin C TAB*] 500 mg PO BEDTIME 10/23/14 [History Confirmed 12/08/19] Beclomethasone Dipropionate [Qvar] 2 puff INH BID 01/04/16 [History Confirmed ] Ibuprofen TAB* [Motrin TAB* 600 MG] 600 mg PO TID PRN 01/04/16 [History Confirmed 12/08/19] Levalbuterol HFA INHALER* [Xopenex Hfa Inhaler*] 1 puff INH Q4H PRN 02/15/16 [ History Confirmed 12/08/19] Acetaminophen [Tylenol Extra Strength] 1,000 mg PO DAILY PRN 06/04/18 [History Confirmed 12/08/19] L.acidoph,Paracasei, B.lactis [Probiotic] 1 tab PO DAILY 12/08/19 [History Confirmed 12/08/19] Multivit-Min/Folic Acid/Vit K1 [Multi For Her 50 Plus Softgel] 1 each PO DAILY 12/08/19 [History Confirmed 12/08/19] Pantoprazole TAB * [Protonix TAB*] 40 mg PO BID 12/08/19 [History Confirmed 11/27] Psyllium Husk (with Sugar) [Fiber Therapy Powder] 368 gm PO DAILY 12/08/19 [ History Confirmed 12/08/19] predniSONE [Prednisone 20 MG TAB] 20 mg PO DAILY 12/08/19 [History Confirmed 11/27] PMH/Surg Hx/FS Hx/Imm Hx Previously Healthy: Yes Endocrine History: Hypothyroidism Respiratory History: Asthma GI/ History: Gastroesophageal Reflux - Surgical History Surgical History: Yes Surgery Procedure, Year, and Place: Thyroidectomy 1994 [facility];. Appendectomy AGE 14 [facility];. right elbow release ;. right cataract removal 1994;. Polyps removed from vocalcords [facility] ;. uterine ablation 2006;. D&C ;. Decompression of bilat shoulders 2002& 2004;. left thumb trigger finger 2013;. left eye musclesurgery for strabismus AGE 3 [facility];. LEFT CATARACT 05/2015. LASER SURGERY RIGHT EYE, [place]. CYSCT/ BONE SPURS RIGHT WRIST DR MIRANDA 2013 - Family History Known Family History: Positive: Non-Contributory Family History: NON CONTRIBUTORY - Social History Alcohol Use: Rare Alcohol Amount: 2 PER YEAR Substance Use Type: None Smoking Status (MU): Former Smoker Type: Cigarettes Amount Used/How Often: 1/2 PACK A DAY Length of Time of Smoking/Using Tobacco: 3 years Have You Smoked in the Last Year: No When Did the Patient Quit Smoking/Using Tobacco: 1977 - Immunization History Most Recent Tetanus Shot: UTD Review of Systems All Other Systems Reviewed And Are Negative: Yes Constitutional: Positive: Other - SEE HPI Skin: Positive: Negative Eyes: Positive: Negative ENT: Positive: Negative Respiratory: Positive: Shortness Of Breath, Cough, Other - SEE HPI Cardiovascular: Positive: Negative Gastrointestinal: Positive: Negative Motor: Positive: Negative Neurovascular: Positive: Negative Musculoskeletal: Positive: Negative Neurological/Mental Status: Positive: Negative Psychological: Positive: Negative Is Patient Immunocompromised?: No Physical Exam Triage Information Reviewed: Yes Appearance: No Pain Distress, Well-Nourished, Ill-Appearing - MILD Vital Signs: Initial Vital Signs Temp 98.1 F 12/08/19 09:09 Pulse 59 12/08/19 09:09 Resp 20 12/08/19 09:09 BP 130/80 12/08/19 09:09 Pulse Ox 99 12/08/19 09:09 Vital Signs Reviewed: Yes Eye Exam: Normal Eyes: Positive: Conjunctiva Clear ENT: Positive: Pharynx normal, TMs normal Neck: Positive: Supple Respiratory: Positive: No respiratory distress, Rhonchi, Wheezing Cardiovascular: Positive: RRR Musculoskeletal: Positive: Strength Intact, ROM Intact Neurological: Positive: Alert, Muscle Tone Normal Psychological: Positive: Age Appropriate Behavior Skin Exam: Normal Respiratory Course/Dx - Course Course Of Treatment: [employer] Director: Dylan Kang Daniel ([id number]) Software Educator: DESIRAE ( DESIRAE) Report Date: 12/08/2019 09:38:00 Report Status: Final ====== Start of Report Content Patient Name: TED ASHER Medical Record# : [id number] Ordering Physician: Jasen Beckham MD Acct.#: [id number] : 1960 Age: 59 Sex: F Location: [facility] Exam Date: 914 ADM Status: REG ER Order Information: CHEST PA LAT 2 VWS Accession Number: [id number] CPT: 33995 HISTORY: COUGH,SOB COMPARISONS: February 03, 2015 VIEWS: 4: Frontal dual-energy and lateral views of the chest. FINDINGS: CARDIOMEDIASTINAL SILHOUETTE: The cardiomediastinal silhouette is normal. LILIBETH: The lilibeth are normal. PLEURA: The costophrenic angles are sharp. No pleural abnormalities are noted. LUNG PARENCHYMA: The lungs are clear. ABDOMEN: The upper abdomen is clear. There is no subphrenic gas. BONES AND SOFT TISSUES: No bone or soft tissue abnormalities are noted. OTHER: None. IMPRESSION: NO ACTIVE CARDIOPULMONARY DISEASE. <Electronically signed by Dylan Kang MD in OV> 12/08/19934 Dictated By: Dylan Kang MD Dictated Date/Time: 12/08/19933 Transcribed Date/Time: 12/08/19933 Copy to: CC:Shadi Hernandez MD; Jasen Beckham MD Imaging - [facility] - [place] [facility] [address] [place] [address] ph [phone]) ph ) ph ([phone]) End of Report Content I discussed the chest x-ray with the patient. Patient does feel improved after the Xopenex inhaler. Patient's had C. difficile recently from antibiotic use. There is no pneumonia seen on chest x-ray. At this time we'll treat for bronchitis with asthma exacerbation. 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 We are going to avoid an antibiotic at this time. Patient to get reevaluated sooner if not improving or worse. - Differential Dx/Diagnosis Provider Diagnosis: Bronchitis, Asthma Discharge ED - Sign-Out/Discharge Documenting (check all that apply): Patient Departure All imaging exams completed and their final reports reviewed: Yes - Discharge Plan Condition: Stable Disposition: HOME Patient Education Materials: Asthma (ED), Acute Bronchitis (ED) Referrals: Shadi Hernandez MD [Primary Care Provider] - Veronika Friend MD [Medical Doctor] - Additional Instructions: FOLLOW UP WITH PULMONOLOGY. GET REEVALUATED SOONER IF NOT IMPROVED OR WORSE OR ANY QUESTIONS OR CONCERNS. - Billing Disposition and Condition Condition: STABLE Disposition: Home
== END 2019-12-08 10:15 | disposition home or self-care (01) ==
LOC: UCEAST 08:42
DX: J45.909 Unspecified asthma, uncomplicated (principal); E03.9 Hypothyroidism, unspecified; K21.9 Gastro-esophageal reflux disease without esophagitis; Z79.899 Other long term (current) drug therapy; Z87.891 Personal history of nicotine dependence
CPT/HCPCS: 71046; 99212; G0463